=== PATIENT | male | born 1960 | race Two or more races ===

== ENCOUNTER → 2018-06-11 | Outpatient (REF) | payer OTHER ==
[2018-06-11 19:43] LABS: ESTIMATED AVERAGE GLUCOSE 105 MG/DL (60-110); HEMOGLOBIN A1c 5.3 %
[2018-06-13 10:10] LABS: CORTISOL AM 11.8 UG/DL (4.3-22.4)
== END ==
LOC: M SFHCLERA 09:33
DX: I10 Essential (primary) hypertension (principal); E66.01 Morbid (severe) obesity due to excess calories

== ENCOUNTER → 2018-08-12 | Outpatient (CLI) | payer OTHER | LOC: M RAD 09:05 | DX: I10 Essential (primary) hypertension (principal) ==

== ENCOUNTER → 2018-09-14 | Outpatient (CLI) | payer OTHER ==
[~2018-09-14] MED LIST: ISOVUE-370 76% 100ML VIAL (Q9967) As Ordered
== END ==
LOC: M RAD 14:17
DX: I10 Essential (primary) hypertension (principal); N28.1 Cyst of kidney, acquired
CPT/HCPCS: Q9967

== ENCOUNTER → 2018-09-14 | Outpatient (REF) | payer OTHER ==
[2018-09-14 16:30] LABS: ANION GAP 6 MEQ/L (8-16); BLOOD UREA NITROGEN 31 MG/DL (7-18); CALCIUM LEVEL 9.3 MG/DL (8.5-10.1); CARBON DIOXIDE LEVEL 30 MEQ/L (21-32); CHLORIDE LEVEL 104 MEQ/L (98-107); CREATININE FOR GFR 1.01 MG/DL (0.70-1.30); GLOMERULAR FILTRATION RATE > 60.0 (>56); GLUCOSE, FASTING 88 MG/DL (70-100); POTASSIUM SERUM 3.9 MEQ/L (3.5-5.1); SODIUM LEVEL 140 MEQ/L (136-145)
== END ==
LOC: M SFHCLERA 12:03
DX: I10 Essential (primary) hypertension (principal)
CPT/HCPCS: 80048

== ENCOUNTER → 2018-10-07 | Outpatient (CLI) | payer OTHER ==
--- NOTE | 2018-10-19 08:01 | SLEEPCENT ---
DATE OF PROCEDURE: 10/07/2018 ORDERING PROVIDER: Dr. Cooper Nocturnal polysomnography was performed for the retitration of pressure therapy in this patient with severe obstructive sleep apnea syndrome. Apnea-hypopnea index of 86.5. For testing, a ResMed Air Fit F30 medium sized mask was used, 10 cm of water pressure was applied to the circuit the lights were extinguished. 7 hours of 5 minutes of data were reviewed. There were 216 minutes of sleep identified. Sleep latency was prolonged at 17.5 minutes. Rapid eye movement (REM) latency was prolonged at 130 minutes. Sleep architecture improved with optimal pressure therapy. Overall sleep efficiency was 51.4% due to periods of wake after sleep onset. There were four REM cycles noted. The patient's electrocardiogram showed sinus rhythm with an average heart rate of 55 beats per minute. Electroencephalogram (EEG) showed normal waveforms for awake and sleep. Respiratory events were best palliated with C-PAP to a pressure of 13, with which the patient slept through REM without respiratory event or oxygen desaturation. There was minimal limb activity and remaining measures of sleep physiology were normal. IMPRESSION: Obstructive sleep apnea syndrome (G47.33). RECOMMENDATIONS: Nightly use of pressure therapy 13 cm of water.
== END ==
LOC: M SLEEP 19:32
PROVIDERS: ATTEND Nurse Practitioner Family
DX: G47.33 Obstructive sleep apnea (adult) (pediatric) (principal)

== ENCOUNTER → 2019-07-27 | Outpatient (REF) | payer OTHER ==
[2019-07-27 20:32] LABS: ALBUMIN 3.8 GM/DL (3.2-5.2); ALT/SGPT 49 U/L (12-78); BILIRUBIN,TOTAL 0.5 MG/DL (0.2-1.0); BLOOD UREA NITROGEN 28 MG/DL (7-18); CALCIUM LEVEL 9.2 MG/DL (8.5-10.1); CARBON DIOXIDE LEVEL 28 MEQ/L (21-32); CHLORIDE LEVEL 106 MEQ/L (98-107); CHOLESTEROL LEVEL 152 MG/DL (<200); CHOLESTEROL RISK RATIO 2.814 (<5); CREATININE FOR GFR 1.05 MG/DL (0.70-1.30); GLOMERULAR FILTRATION RATE > 60.0 (>56); GLUCOSE, FASTING 82 MG/DL (70-100); HDL CHOLESTEROL 54 MG/DL (>40); LDL CHOLESTEROL 78 MG/DL (<100); NON-HDL-C 98 MG/DL; POTASSIUM SERUM 3.3 MEQ/L (3.5-5.1); SODIUM LEVEL 142 MEQ/L (136-145); TOTAL PROTEIN 7.7 GM/DL (6.4-8.2); TRIGLYCERIDES LEVEL 102 MG/DL (<150)
[2019-07-27 20:40] LABS: MALB URINE SIEMENS 31.1 MG/L; MAU/CREAT RATIO 21.7 MCG/MG (0.0-30.0)
[2019-07-28 10:07] LABS: HEMOGLOBIN A1c 5.6 %
== END ==
LOC: M SFHCLERA 16:01
PROVIDERS: ATTEND Family Medicine
DX: I10 Essential (primary) hypertension (principal)

== ENCOUNTER → 2019-08-03 | Outpatient (REF) | payer OTHER | LOC: M SFHCLERA 17:11 | PROVIDERS: ATTEND Family Medicine | DX: E87.6 Hypokalemia (principal) ==

== ENCOUNTER → 2019-11-16 | Outpatient (REF) | payer BC ==
[2019-11-16 16:55] LABS: BLOOD UREA NITROGEN 22 MG/DL (7-18); CALCIUM LEVEL 9.3 MG/DL (8.5-10.1); CARBON DIOXIDE LEVEL 32 MEQ/L (21-32); CHLORIDE LEVEL 106 MEQ/L (98-107); GLOMERULAR FILTRATION RATE > 60.0 (>56); GLUCOSE, FASTING 82 MG/DL (70-100); POTASSIUM SERUM 3.9 MEQ/L (3.5-5.1); SODIUM LEVEL 141 MEQ/L (136-145)
== END ==
LOC: M SFHCLERA 12:42
PROVIDERS: ATTEND Family Medicine
DX: I10 Essential (primary) hypertension (principal)

== ENCOUNTER → 2019-11-16 | Outpatient (CLI) | payer BC ==
--- NOTE | 2019-11-17 01:40 | REP ---
Clinical: Right knee pain. Technique: AP and lateral views of the right knee. Findings: Early osteoarthritic degenerative changes are appreciated including cortical irregularity and very early spurring along the femoral condyles and posterior margin of the patella. There is increased sclerosis to the tibial plateau with associated medial joint space narrowing. Lateral view demonstrates moderate suprapatellar effusion. No obvious acute fracture or dislocation. Impression: Osteoarthritic degenerative changes and suprapatellar effusion. Electronically Signed by Elie Ball MD 11/17/2019 01:31 A
--- NOTE | 2019-11-17 02:05 | REP ---
Clinical: Right knee pain. Technique: A single AP weightbearing view of the right and left knee. Findings: Mild symmetric arthritic changes are appreciated. There is evidence for subchondral sclerosis and medial joint space narrowing to the bilateral knees. Impression: Moderate bilateral medial joint space narrowing. Mild osteoarthritic degenerative changes. Electronically Signed by Elie Ball MD 11/17/2019 01:56 A
== END ==
LOC: M LRY 13:12
PROVIDERS: ATTEND Family Medicine
DX: M25.561 Pain in right knee (principal)

== ENCOUNTER → 2020-11-04 | Outpatient (CLI) | payer BC ==
[2020-11-04 16:53] LABS: BASO % 0.4 % (0.0-1.0); EOS # 0.1 10^3/uL (0.0-0.5); EOS % 1.2 % (0.0-3.0); HEMATOCRIT 42.3 % (42.0-52.0); HEMOGLOBIN 13.6 g/dl (13.5-17.5); LYMPH # 3.1 10^3/uL (1.5-5.0); LYMPH % 31.5 % (24.0-44.0); MEAN CORPUSCULAR HEMOGLOBIN 28.9 pg (27.0-33.0); MEAN CORPUSCULAR HGB CONC 32.2 g/dl (32.0-36.5); MONO # 0.9 10^3/uL (0.0-0.8); MONO % 9.3 % (0.0-5.0); NEUTROPHILS # 5.6 10^3/uL (1.5-8.5); NEUTROPHILS % 57.3 % (36.0-66.0); PLATELET COUNT, AUTOMATED 266 10^3/uL (150-450); WHITE BLOOD COUNT 9.9 10^3/uL (4.0-10.0)
[2020-11-04 17:09] LABS: BLOOD UREA NITROGEN 23 MG/DL (7-18); CALCIUM LEVEL 9.9 MG/DL (8.5-10.1); CARBON DIOXIDE LEVEL 30 MEQ/L (21-32); CHLORIDE LEVEL 107 MEQ/L (98-107); CHOLESTEROL LEVEL 188 MG/DL (<200); CHOLESTEROL RISK RATIO 3.298 (<5); CREATININE FOR GFR 0.96 MG/DL (0.70-1.30); GLOMERULAR FILTRATION RATE > 60.0 (>56); GLUCOSE, FASTING 91 MG/DL (70-100); HDL CHOLESTEROL 57 MG/DL (>40); LDL CHOLESTEROL 115 MG/DL (<100); NON-HDL-C 131 MG/DL; POTASSIUM SERUM 3.7 MEQ/L (3.5-5.1); SODIUM LEVEL 142 MEQ/L (136-145); TRIGLYCERIDES LEVEL 81 MG/DL (<150)
[2020-11-04 17:50] LABS: HEMOGLOBIN A1c 5.5 %
== END ==
LOC: M WUC 10:53
PROVIDERS: ATTEND Family Medicine
DX: I10 Essential (primary) hypertension (principal); E66.01 Morbid (severe) obesity due to excess calories

== ENCOUNTER → 2021-12-24 | Outpatient (CLI) | payer BC ==
[2021-12-24 17:27] LABS: BLOOD UREA NITROGEN 30 MG/DL (7-18); CALCIUM LEVEL 9.8 MG/DL (8.8-10.2); CARBON DIOXIDE LEVEL 31 MEQ/L (21-32); CHLORIDE LEVEL 108 MEQ/L (98-107); CHOLESTEROL LEVEL 173 MG/DL (<200); CHOLESTEROL RISK RATIO 3.264 (<5); CREATININE FOR GFR 0.92 MG/DL (0.70-1.30); GLOMERULAR FILTRATION RATE > 60.0 (>49); GLUCOSE, FASTING 89 MG/DL (70-100); HDL CHOLESTEROL 53 MG/DL (>40); LDL CHOLESTEROL 99 MG/DL (<100); NON-HDL-C 120 MG/DL; POTASSIUM SERUM 3.7 MEQ/L (3.5-5.1); SODIUM LEVEL 142 MEQ/L (136-145); TRIGLYCERIDES LEVEL 105 MG/DL (<150)
[2021-12-24 17:34] LABS: TOTAL 25(OH) VITAMIN D 36.2 NG/ML (30.0-100.0)
[2021-12-24 19:08] LABS: HEMOGLOBIN A1c 5.3 %
== END ==
LOC: M WUC 11:11
PROVIDERS: ATTEND Family Medicine
DX: Z13.1 Encounter for screening for diabetes mellitus (principal); E55.9 Vitamin D deficiency, unspecified; Z13.220 Encounter for screening for lipoid disorders

== ENCOUNTER → 2023-02-16 | Outpatient (CLI) | payer BC ==
[2023-02-16 16:56] LABS: ALBUMIN 4.1 G/DL (3.2-5.2); ALKALINE PHOSPHATASE 66 U/L (46-116); ALT/SGPT 61 U/L (7.0-40); AST/SGOT 32 U/L (<34); BILIRUBIN,TOTAL 0.6 MG/DL (0.3-1.2); BLOOD UREA NITROGEN 23 MG/DL (9-23); CALCIUM LEVEL 9.7 MG/DL (8.3-10.6); CARBON DIOXIDE LEVEL 31 MMOL/L (20-31); CHLORIDE LEVEL 104 MMOL/L (98-107); CHOLESTEROL LEVEL 164 MG/DL (<200); CHOLESTEROL RISK RATIO 2.99 (<5); CREATININE FOR GFR 0.87 MG/DL (0.70-1.30); GLOMERULAR FILTRATION RATE > 60.0 (>49); GLUCOSE, FASTING 106 MG/DL (74-106); HDL CHOLESTEROL 54.7 MG/DL (>40); LDL CHOLESTEROL 79.7 MG/DL (<100); NON-HDL-C 109.3 MG/DL; POTASSIUM SERUM 3.5 MMOL/L (3.5-5.1); SODIUM LEVEL 141 MMOL/L (136-145); TOTAL PROTEIN 7.4 G/DL (5.7-8.2); TRIGLYCERIDES LEVEL 148 MG/DL (<150)
[2023-02-16 17:04] LABS: BASO # 0.1 10^3/uL (0.0-0.2); BASO % 0.6 % (0.0-1.0); EOS # 0.2 10^3/uL (0.0-0.5); EOS % 1.5 % (0.0-3.0); HEMATOCRIT 43.6 % (42.0-52.0); HEMOGLOBIN 14.4 g/dl (13.5-17.5); LYMPH % 28.2 % (24.0-44.0); MEAN CORPUSCULAR VOLUME 87.7 fl (80.0-96.0); MONO # 0.8 10^3/uL (0.0-0.8); MONO % 7.7 % (2.0-8.0); NEUTROPHILS # 6.6 10^3/uL (1.5-8.5); NEUTROPHILS % 61.8 % (36.0-66.0); PLATELET COUNT, AUTOMATED 266 10^3/uL (150-450); RED BLOOD COUNT 4.97 10^6/uL (4.30-6.10); WHITE BLOOD COUNT 10.7 10^3/uL (4.0-10.0)
[2023-02-16 17:15] LABS: HEMOGLOBIN A1c 5.2 % (4.0-6.0)
[2023-02-16 17:24] LABS: MAU/CREAT RATIO 42.8 MCG/MG (0.0-30.0)
== END ==
LOC: M WUC 12:16
PROVIDERS: ATTEND Family Medicine
DX: I10 Essential (primary) hypertension (principal); E66.01 Morbid (severe) obesity due to excess calories

== ENCOUNTER → 2024-08-18 | Outpatient (REF) | payer BC ==
[2024-08-18 17:49] LABS: ALBUMIN 3.6 G/DL (3.2-5.2); ALKALINE PHOSPHATASE 76 U/L (40-129); ALT/SGPT 42 U/L (7.0-40); AST/SGOT 19 U/L (<34); BILIRUBIN,TOTAL 0.5 MG/DL (0.3-1.2); BLOOD UREA NITROGEN 21 MG/DL (9-23); CALCIUM LEVEL 10.3 MG/DL (8.3-10.6); CARBON DIOXIDE LEVEL 28 MMOL/L (20-31); CHLORIDE LEVEL 104 MMOL/L (98-107); CHOLESTEROL LEVEL 182 MG/DL (<200); CREATININE FOR GFR 0.82 MG/DL (0.70-1.30); GLOMERULAR FILTRATION RATE > 60.0 (>49); GLUCOSE, FASTING 95 MG/DL (74-106); LDL CHOLESTEROL 87.2 MG/DL (<100); POTASSIUM SERUM 3.6 MMOL/L (3.5-5.1); SODIUM LEVEL 139 MMOL/L (136-145); TOTAL PROTEIN 7.6 G/DL (5.7-8.2); TRIGLYCERIDES LEVEL 214 MG/DL (<150)
== END ==
LOC: M SFHCLERA 14:03
PROVIDERS: ATTEND Family Medicine
DX: I10 Essential (primary) hypertension (principal); E66.01 Morbid (severe) obesity due to excess calories

== ENCOUNTER → 2025-09-05 | Outpatient (REF) | payer BC ==
[2025-09-05 17:25] LABS: ALT/SGPT 53 U/L (7.0-40); AST/SGOT 30 U/L (<34); CALCIUM LEVEL 9.6 MG/DL (8.3-10.6); CARBON DIOXIDE LEVEL 27 MMOL/L (20-31); CHLORIDE LEVEL 107 MMOL/L (98-107); CHOLESTEROL LEVEL 181 MG/DL (<200); CHOLESTEROL RISK RATIO 3.25 (<5); CREATININE FOR GFR 0.80 MG/DL (0.70-1.30); GLOMERULAR FILTRATION RATE > 90.0 (>49); LDL CHOLESTEROL 106.0 MG/DL (<100); NON-HDL-C 125.4 MG/DL; POTASSIUM SERUM 3.6 MMOL/L (3.5-5.1); SODIUM LEVEL 144 MMOL/L (136-145); TRIGLYCERIDES LEVEL 97 MG/DL (<150)
[2025-09-05 18:01] LABS: CREATININE, URINE 128.3 MG/DL; MALB URINE SIEMENS 107.0 MG/L; MAU/CREAT RATIO 83.3 MCG/MG (0.0-30.0)
== END ==
LOC: M SFHCLERA 10:37
PROVIDERS: ATTEND Family Medicine
DX: E78.5 Hyperlipidemia, unspecified (principal); I1A.0 Resistant hypertension